=== PATIENT | male | born 1990 | race Caucasian/White ===

== ENCOUNTER 2022-10-24 18:17 | Emergency (ER) | payer OTHER, SELFPAY ==
[2022-10-24 17:58] VITALS: PULSE 84; RESP 18; TEMP 36.6; O2SAT 98; BMI 19.5
--- NOTE | 2022-10-24 18:24 | PC.NURSE ---
IV started per [facility]
--- NOTE | 2022-10-24 18:49 | CT_ITS ---
[address] [address] Patient Name: RORO HOLDEN MRN: [id number] date: 1990 Sex: M Assigned Patient Location: ER Current Patient Location: Accession/Order Number: [id number] Exam Date: 10/24/2022 08:00 Report Date: 10/24/2022 21:42 At the request of: REHANA TAYLOR Procedure: CT abdomen pelvis w con CLINICAL HISTORY: Abdominal pain, nausea, vomiting. EXAMINATION: ENHANCED CT SCAN OF THE ABDOMEN AND PELVIS: 10/24/2022. COMPARISON: None. TECHNIQUE: 3 mm axial images from lung bases through ischial tuberosities following administration of intravenous as well as oral contrast were obtained. Sagittal, coronal reconstructions were performed. FINDINGS: The visualized lung bases, cardiac, posterior mediastinal structures seem normal. CT ABDOMEN: The liver, gallbladder, pancreas, adrenal glands, kidneys appear normal. The spleen is unremarkable except for a low-attenuation lesion in its upper, medial aspect, measuring 1.1 cm with average Hounsfield units of approximately 60. The abdominal aorta has normal caliber. There is no retroperitoneal or mesenteric adenopathy. There is a long segment of distal ileum for a length of approximately 10 to 15 cm which demonstrates diffuse thickening of the wall, surrounding hyperemia, minimal induration of surrounding fat to the level of terminal ileum. There is no abnormal dilatation of the proximal bowel loops. The remaining bowel loops, including colon are normal. The partially visualized appendix seems normal. CT PELVIS: The bladder, is incompletely distended but normal. The prostate, seminal vesicles appear normal. There is no pelvic adenopathy. There are no focal fluid collections. The visualized soft tissue structures seem normal. On the delayed phase images there is no extravasation of contrast from the distal ureters or the base of the bladder. IMPRESSION: 1. There is a long segment at least 15 cm in length involving the distal ileum to the level of terminal ileum demonstrates diffuse wall thickening, surrounding hyperemia and induration of surrounding fat concerning for either inflammatory or infectious enteritis. Crohn's disease is a consideration. 2. The appendix seems normal. 3. No nephro or ureterolithiasis. 4. Low-attenuation lesion in the spleen probably a hemangioma. Electronically authenticated by: BART MILLAN Date: 10/24/2022 21:42
--- NOTE | 2022-10-24 19:08 | ED.ABDPAIN1 ---
HPI - Abdominal Pain General Chief Complaint: Abdominal Pain Time Seen by Provider: 10/24/22 19:08 Source: patient Source comment: pt brought by EMS fa j Mode of arrival: ambulance History of Present Illness HPI narrative: pt is coming here Related Data Previous Rx's Medication Instructions Recorded famotidine 20 mg tablet (Pepcid) 20 mg PO Q12H #14 tabs 10/24/22 ondansetron 4 mg disintegrating 4 mg PO Q8H PRN nausea and 10/24/22 tablet vomiting 3 days #10 tabs prednisone 50 mg tablet 50 mg PO DAILY #5 tabs 10/24/22 Allergies Allergy/AdvReac Type Severity Reaction Status Date / Time bee venom protein (honey bee) AdvReac Severe Verified 10/24/22 18:01 [facility] Medical History (Updated 10/24/22 @ 22:15 by Yancy Hernández MD) Exam Constitutional Vital Signs - 24 hr 10/24/22 17:58 Temperature 98 F Pulse Rate [Monitor] 84 Respiratory Rate 18 Pulse Oximetry 98 Oxygen Delivery Method Room Air Course Vital Signs Vital signs: Vital Signs Temperature 98 F 10/24/22 17:58 Pulse Rate 84 10/24/22 17:58 Respiratory Rate 18 10/24/22 17:58 Pulse Oximetry 98 10/24/22 17:58 Oxygen Delivery Method Room Air 10/24/22 17:58 Temperature 98 F 10/24/22 17:58 Pulse Rate 84 10/24/22 17:58 Respiratory Rate 18 10/24/22 17:58 Pulse Oximetry 98 10/24/22 17:58 Oxygen Delivery Method Room Air 10/24/22 17:58 MDM - Abdominal Pain Lab Data Labs: Lab Results 10/24/22 10/24/22 10/24/22 Range/Units 19:32 19:45 20:03 WBC 12.9 H (4.0-11.0) 10^3/uL RBC 4.16 L (4.70-6.10) 10^6/uL Hgb 11.7 L (14.0-18.0) g/dL Hct 35.4 L (42.0-54.0) % MCV 85.1 (80.0-94.0) fL MCH 28.1 (25.9-34.0) pg MCHC 33.1 (29.9-35.2) g/dL RDW 14.1 (11.0-15.0) % Plt Count 365 (150-450) 10^3/uL MPV 9.1 L (9.5-13.5) fL Neut % (Auto) 73.3 (43.0-75.0) % Lymph % (Auto) 19.0 L (20.5-60.0) % [place] % (Auto) 5.7 (1.7-12.0) % Eos % (Auto) 1.3 (0.9-7.0) % Baso % (Auto) 0.2 (0.2-2.0) % Neut # (Auto) 9.5 H (1.4-6.5) 10^3/uL Lymph # (Auto) 2.5 (1.2-3.8) 10^3/uL [place] # (Auto) 0.7 (0.3-0.8) 10^3/uL Eos # (Auto) 0.2 (0.0-0.7) 10^3/uL Baso # (Auto) 0.0 (0.0-0.1) 10^3/uL Abs Immat Gran (auto) 0.06 H (0.00-0.03) 10^3/uL Imm/Tot Granulo (auto) 0.5 (0.0-0.5) % Sodium 140 (136-145) mmol/L Potassium 3.9 (3.5-5.1) mmol/L Chloride 112 H (98-107) mmol/L Carbon Dioxide 30.6 (21.0-32.0) mmol/L Anion Gap 1.3 BUN 14.0 (7.0-18.0) mg/dL Creatinine 1.07 (0.70-1.30) mg/dL Est GFR ( Amer) >60 (>=60) Est GFR (Non-Af Amer) >60 (>=60) BUN/Creatinine Ratio 13.1 Glucose 94 (74-106) mg/dL Lactate 0.5 (0.4-2.0) mmol/L Calcium 8.2 L (8.5-10.1) mg/dL Total Bilirubin 0.3 (0.2-1.0) mg/dL AST 10 L (15-37) U/L ALT 17 (16-63) U/L Alkaline Phosphatase 66 (46-116) U/L Total Protein 6.1 L (6.4-8.2) g/dL Albumin 2.8 L (3.4-5.0) g/dL Globulin 3.3 g/dL Albumin/Globulin Ratio 0.8 Lipase 110.0 (73.0-393.0) U/L Urine Color Yellow (YELLOW) Urine Clarity Clear (CLEAR) Urine pH 7.0 (5.0-9.0) Ur Specific [place] 1.020 (1.005-1.025) Urine Protein 30 A (NEG/TRACE) mg/dL Urine Glucose (UA) Negative (NEGATIVE) mg/dL Urine Ketones Trace A (NEGATIVE) mg/dL Urine Occult Blood Negative (NEGATIVE) Urine Nitrite Negative (NEGATIVE) Urine Bilirubin Negative (NEGATIVE) Urine Urobilinogen 1.0 (0.2-1.0) EU/dL Ur Leukocyte Esterase Negative (NEGATIVE) Urine RBC 0-2 (0-2) #/HPF Urine WBC 2-5 A (NONE SEEN) #/HPF Ur Squamous Epith Cells None seen (NONE/RARE) #/LPF Urine Crystals None seen (None Seen) #/HPF Urine Casts None seen (NONE SEEN) #/LPF Urine Mucus None seen (NONE SEEN) Ur Culture Indicated? No Discharge Plan Discharge Chief Complaint: Abdominal Pain Clinical Impression: Crohn's colitis Patient Disposition: Home, Self-Care Time of Disposition Decision: 22:04 Condition: Good Mode of Transportation: Private Vehicle Prescriptions / Home Meds: New famotidine [Pepcid] 20 mg tablet 20 mg PO Q12H Qty: 14 0RF prednisone 50 mg tablet 50 mg PO DAILY Qty: 5 0RF ondansetron 4 mg tablet,disintegrating 4 mg PO Q8H PRN (Reason: nausea and vomiting) 3 Days Qty: 10 0RF Stand Alone Forms: Portal Instructions Referrals: Physician,Non-Staff, MD [Primary Care Provider] - 1 week
[2022-10-24] MEDS: MORPHINE SULFATE 4 MG/ML VIAL IV (19:21)
[2022-10-24] MEDS: ONDANSETRON PF 4 MG/2 ML VIAL IV ×2 (19:21→21:51)
[2022-10-24] MEDS: 0.9 % SODIUM CHLORIDE 1,000 ML 100 ML IV (19:21)
[2022-10-24 19:41] LABS: Basophils Percent Auto 0.2 % (0.2-2.0); Eosinophils Absolute Auto 0.2 10^3/uL (0.0-0.7); Eosinophils Percent Auto 1.3 % (0.9-7.0); Hematocrit 35.4 % (42.0-54.0); Hemoglobin 11.7 g/dL (14.0-18.0); Immature Granulocytes Abs Auto 0.06 10^3/uL (0.00-0.03); Immature Granulocytes Pct Auto 0.5 % (0.0-0.5); Lymphocytes Absolute Auto 2.5 10^3/uL (1.2-3.8); Mean Corpuscular HGB Conc 33.1 g/dL (29.9-35.2); Mean Corpuscular Hemoglobin 28.1 pg (25.9-34.0); Mean Corpuscular Volume 85.1 fL (80.0-94.0); Mean Platelet Volume 9.1 fL (9.5-13.5); Monocytes Absolute Auto 0.7 10^3/uL (0.3-0.8); Monocytes Percent Auto 5.7 % (1.7-12.0); Neutrophils Absolute Auto 9.5 10^3/uL (1.4-6.5); Neutrophils Percent Auto 73.3 % (43.0-75.0); Platelet Count 365 10^3/uL (150-450); Red Blood Count 4.16 10^6/uL (4.70-6.10); Red Cell Distribution Width 14.1 % (11.0-15.0); White Blood Count 12.9 10^3/uL (4.0-11.0)
[2022-10-24 19:55] LABS: Alanine Aminotransferase 17 U/L (16-63); Albumin Globulin Ratio 0.8; Albumin Level 2.8 g/dL (3.4-5.0); Alkaline Phosphatase 66 U/L (46-116); Anion Gap 1.3; Aspartate Amino Transferase 10 U/L (15-37); BUN Creatinine Ratio 13.1; Bilirubin Total 0.3 mg/dL (0.2-1.0); Calcium 8.2 mg/dL (8.5-10.1); Carbon Dioxide 30.6 mmol/L (21.0-32.0); Chloride 112 mmol/L (98-107); Estimated GFR (African America >60 (>=60); Estimated GFR (Non-African Ame >60 (>=60); Globulin 3.3 g/dL; Glucose 94 mg/dL (74-106); Potassium 3.9 mmol/L (3.5-5.1); Sodium 140 mmol/L (136-145); Total Protein 6.1 g/dL (6.4-8.2)
[2022-10-24 19:57] LABS: Lactate/Lactic Acid 0.5 mmol/L (0.4-2.0)
[2022-10-24 20:00] LABS: Bilirubin Urine NEGATIVE (NEGATIVE); Blood Urine NEGATIVE (NEGATIVE); Clarity Urine CLEAR (CLEAR); Color Urine YELLOW (YELLOW); Glucose Urine UA NEGATIVE (NEGATIVE); Ketones Urine TRACE mg/dL (NEGATIVE); Leukocyte Esterase Urine NEGATIVE (NEGATIVE); Nitrite Urine NEGATIVE (NEGATIVE); Protein Urine 30 mg/dL (NEG/TRACE)
[2022-10-24 20:03] LABS: Urine Microscopic Indicated YES
[2022-10-24 20:14] LABS: Cast Seen? NONE SEEN #/LPF (NONE SEEN); Crystals Seen? None Seen #/HPF (None Seen); Mucus Urine NONE SEEN (NONE SEEN); RBC Urine 0-2 #/HPF (0-2); Squamous Epithelial Cell Urine NONE SEEN #/LPF (NONE/RARE); Urine Culture Indicated NO
--- NOTE | 2022-10-24 21:00 | PC.NURSE ---
patient states pain has improved since being medicated.
--- NOTE | 2022-10-24 21:27 | PC.NURSE ---
patient complaints of returning nausea and abdominal pain. physician aware. orders given
[2022-10-24] MEDS: FAMOTIDINE/PF 20 MG/2 ML VIAL IV (21:51)
[2022-10-24] MEDS: METHYLPREDNISOLONE SOD SUCC PF 125 MG/2 ML VIAL IVP (22:41)
[2022-10-24 22:42] VITALS: BP 111/62; PULSE 66; RESP 16; O2SAT 99
--- NOTE | 2022-10-24 22:49 | ED.ABDPAIN1 ---
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, the patient also had nausea and vomiting he has a history of Crohn's and recently due to changes in his insurance he could not take his Humira, the patient mentioned that for the last three days he was using get liquid diet to help his pain get better but it did not improve Complaining of left lower quadrant pain not radiating this issue with nausea and vomiting The patient already received 4 mg morphine IV before arrival by the EMS The patient denies any diarrhea or constipation Review of systems otherwise negative Related Data Previous Rx's Medication Instructions Recorded famotidine 20 mg tablet (Pepcid) 20 mg PO Q12H #14 tabs 10/24/22 ondansetron 4 mg disintegrating 4 mg PO Q8H PRN nausea and 10/24/22 tablet vomiting 3 days #10 tabs prednisone 50 mg tablet 50 mg PO DAILY #5 tabs 10/24/22 Allergies Allergy/AdvReac Type Severity Reaction Status Date / Time bee venom protein (honey bee) AdvReac Severe Verified 10/24/22 18:01 Review of Systems ROS Status of ROS 10 or more systems reviewed and unremarkable except as noted in history and below [facility] Medical History (Updated 10/24/22 @ 22:15 by Yancy Hernández MD) Exam Narrative Exam Narrative: Nurses notes and vital signs reviewed and patient is not hypoxic. General: Well-appearing and in no apparent distress. Skin: Warm, dry, no pallor noted. No rash. Head: Normocephalic, atraumatic. Neck: Supple, non-tender. Eye: Pupils are equal, round and EOMI. No scleral icterus. Ears, Nose, Mouth, and Throat: TM are clear, no nasal mucosal hypertrophy. Oral mucosa is moist, no posterior oropharynx erythema, uvula is mid-line Cardiovascular: Regular Rate and Rhythm without murmur, gallop or rub. Respiratory: No accessory muscle use or respiratory distress. Lungs are clear to auscultation, no wheezing, rales or rhonchi Chest Wall: no tenderness Back: No midline thoracic or lumbar vertebral tenderness. No CVA tenderness Musculoskeletal: normal ROM, no calf or popliteal tenderness, no lower extremity edema/swelling GI: Abdomen is soft, non-distended. Normal bowel sounds. No masses appreciated. No tenderness to palpation. No rebound, guarding, or rigidity noted. Neurological: A&O x4. No cranial nerve dysfunction observed. No truncal ataxia. Moves all extremities. Sensation intact. Psychiatric: Cooperative and interactive. Normal mood and affect. Constitutional Vital Signs - 24 hr 10/24/22 17:58 10/24/22 22:42 Temperature 98 F Pulse Rate [Monitor] 84 66 Respiratory Rate 18 16 Blood Pressure [Right Arm] 111/62 Pulse Oximetry 98 99 Oxygen Delivery Method Room Air Room Air Course Vital Signs Vital signs: Vital Signs Temperature 98 F 10/24/22 17:58 Pulse Rate 84 10/24/22 17:58 Respiratory Rate 18 10/24/22 17:58 Pulse Oximetry 98 10/24/22 17:58 Oxygen Delivery Method Room Air 10/24/22 17:58 Temperature 98 F 10/24/22 17:58 Pulse Rate 66 10/24/22 22:42 Respiratory Rate 16 10/24/22 22:42 Blood Pressure 111/62 10/24/22 22:42 Pulse Oximetry 99 10/24/22 22:42 Oxygen Delivery Method Room Air 10/24/22 22:42 MDM - Abdominal Pain MDM Narrative Medical decision making narrative: CBC showed a microcytosis and the patient chemistry was within normal . CT abdomen and pelvis with contrast shows thickening of the long segment of the colon and it there is no obstruction I did explain to the patient that diagnoses and possible Crohn's flare up ,and they initially offered him to be admitted for observation but he mentioned that he have his dog in the truck and he wants to go back to [place] to be treated as he was feeling better after initial treatment Isolated to the patient that the preferred admission but he at least needed to follow-up with his primary care doctor within a few days after starting prednisone which we did in ED Also some supportive care with Percocet and Zofran and continue liquid diet The patient was instructed that in case of a new symptom he is to be brought back to the Emergency Room .The patient is to followup with primary care physician in next 2-3 days or to return to the emergency department should any of the signs or symptoms worsen or new symptoms develop. The patient agrees with the following Diagnosis and Treatment plan and the patient will be discharged home. Lab Data Labs: Lab Results 10/24/22 10/24/22 10/24/22 Range/Units 19:32 19:45 20:03 WBC 12.9 H (4.0-11.0) 10^3/uL RBC 4.16 L (4.70-6.10) 10^6/uL Hgb 11.7 L (14.0-18.0) g/dL Hct 35.4 L (42.0-54.0) % MCV 85.1 (80.0-94.0) fL MCH 28.1 (25.9-34.0) pg MCHC 33.1 (29.9-35.2) g/dL RDW 14.1 (11.0-15.0) % Plt Count 365 (150-450) 10^3/uL MPV 9.1 L (9.5-13.5) fL Neut % (Auto) 73.3 (43.0-75.0) % Lymph % (Auto) 19.0 L (20.5-60.0) % [place] % (Auto) 5.7 (1.7-12.0) % Eos % (Auto) 1.3 (0.9-7.0) % Baso % (Auto) 0.2 (0.2-2.0) % Neut # (Auto) 9.5 H (1.4-6.5) 10^3/uL Lymph # (Auto) 2.5 (1.2-3.8) 10^3/uL [place] # (Auto) 0.7 (0.3-0.8) 10^3/uL Eos # (Auto) 0.2 (0.0-0.7) 10^3/uL Baso # (Auto) 0.0 (0.0-0.1) 10^3/uL Abs Immat Gran (auto) 0.06 H (0.00-0.03) 10^3/uL Imm/Tot Granulo (auto) 0.5 (0.0-0.5) % Sodium 140 (136-145) mmol/L Potassium 3.9 (3.5-5.1) mmol/L Chloride 112 H (98-107) mmol/L Carbon Dioxide 30.6 (21.0-32.0) mmol/L Anion Gap 1.3 BUN 14.0 (7.0-18.0) mg/dL Creatinine 1.07 (0.70-1.30) mg/dL Est GFR ( Amer) >60 (>=60) Est GFR (Non-Af Amer) >60 (>=60) BUN/Creatinine Ratio 13.1 Glucose 94 (74-106) mg/dL Lactate 0.5 (0.4-2.0) mmol/L Calcium 8.2 L (8.5-10.1) mg/dL Total Bilirubin 0.3 (0.2-1.0) mg/dL AST 10 L (15-37) U/L ALT 17 (16-63) U/L Alkaline Phosphatase 66 (46-116) U/L Total Protein 6.1 L (6.4-8.2) g/dL Albumin 2.8 L (3.4-5.0) g/dL Globulin 3.3 g/dL Albumin/Globulin Ratio 0.8 Lipase 110.0 (73.0-393.0) U/L Urine Color Yellow (YELLOW) Urine Clarity Clear (CLEAR) Urine pH 7.0 (5.0-9.0) Ur Specific [place] 1.020 (1.005-1.025) Urine Protein 30 A (NEG/TRACE) mg/dL Urine Glucose (UA) Negative (NEGATIVE) mg/dL Urine Ketones Trace A (NEGATIVE) mg/dL Urine Occult Blood Negative (NEGATIVE) Urine Nitrite Negative (NEGATIVE) Urine Bilirubin Negative (NEGATIVE) Urine Urobilinogen 1.0 (0.2-1.0) EU/dL Ur Leukocyte Esterase Negative (NEGATIVE) Urine RBC 0-2 (0-2) #/HPF Urine WBC 2-5 A (NONE SEEN) #/HPF Ur Squamous Epith Cells None seen (NONE/RARE) #/LPF Urine Crystals None seen (None Seen) #/HPF Urine Casts None seen (NONE SEEN) #/LPF Urine Mucus None seen (NONE SEEN) Ur Culture Indicated? No Discharge Plan Discharge Chief Complaint: Abdominal Pain Clinical Impression: Crohn's colitis Patient Disposition: Home, Self-Care Time of Disposition Decision: 22:04 Condition: Good Mode of Transportation: Private Vehicle Prescriptions / Home Meds: New famotidine [Pepcid] 20 mg tablet 20 mg PO Q12H Qty: 14 0RF prednisone 50 mg tablet 50 mg PO DAILY Qty: 5 0RF ondansetron 4 mg tablet,disintegrating 4 mg PO Q8H PRN (Reason: nausea and vomiting) 3 Days Qty: 10 0RF Stand Alone Forms: Portal Instructions Referrals: Physician,Non-Staff, MD [Primary Care Provider] - 1 week Discharge Date/Time: 10/24/22 22:47
== END 2022-10-24 22:47 | disposition home or self-care (01) ==
PROVIDERS: Emergency Medicine; Emergency Provider Emergency Medicine
DX: K50.90 Crohn's disease, unspecified, without complications (principal); Z79.899 Other long term (current) drug therapy
CPT/HCPCS: 36415; 74177; 80053; 81003; 81015; 83605; 83690; 85025; 96374; 96375; 96376; 99285; J2930; Q9967